=== PATIENT | female | born 1945 | race Caucasian/White ===

== ENCOUNTER 2018-09-01 06:05 | Day surgery (SDC) | payer MEDICARE, OTHER ==
[~2018-09-01 06:05] MED LIST: ACETAMINOPHEN 1,000 MG/100 ML BTL IV ONE; CLINDAMYCIN 600MG/50ML PREMIX 600 MG/50 ML BAG IVPB ONE
[2018-09-01] MEDS ORDERED: ACETAMINOPHEN W/ CODEINE 300MG/30MG TABLET PO ONE (06:06)
[2018-09-01] MEDS ORDERED: EPINEPHRINE 1 MG/ML AMPUL SQ ONE (06:06)
[2018-09-01] MEDS ORDERED: SUCCINYLCHOLINE 20 MG/ML 10ML IVP ONE (06:06)
[2018-09-01] MEDS ORDERED: SEVOFLURANE 250 ML INH ONE (06:06)
[2018-09-01] MEDS ORDERED: DEXAMETHASONE 4 MG/ML 1ML VIAL IVP ONE (06:06)
[2018-09-01] MEDS ORDERED: BUPIVACAINE LIPOSOME 266MG/20ML VIAL IV ONE (06:06)
[2018-09-01] MEDS ORDERED: BUPIVACAINE 0.5% W/EPI MPF 30 ML VIAL IVP ONE (06:06)
[2018-09-01] MEDS ORDERED: ONDANSETRON HCL IV 4 MG/2 ML VIAL IVP ONE (06:06)
[2018-09-01] MEDS ORDERED: FENTANYL PF 100MCG/2ML VIAL IV ONE (06:06)
[2018-09-01] MEDS ORDERED: EPHEDRINE SULFATE 50 MG/ML ML IV ONE (06:06)
[2018-09-01] MEDS ORDERED: KETOROLAC 30 MG/ML VIAL IVP ONE (06:06)
[2018-09-01] MEDS ORDERED: PROPOFOL 10 MG/ML VIAL IV ONE (06:06)
--- NOTE | 2018-09-03 19:12 | Operative Note ---
DATE OF SURGERY: 09/01/17 PREOPERATIVE DIAGNOSES: 1. RIGHT SHOULDER ROTATOR CUFF TEAR. 2. AC JOINT ARTHROSIS. POSTOPERATIVE DIAGNOSES: 1. RIGHT SHOULDER ROTATOR CUFF TEAR. 2. AC JOINT ARTHROSIS. 3. BICEPS TENDON RUPTURE. 4. SUBSCAPULARIS TENDON RUPTURE. PROCEDURE: 1. DIAGNOSTIC ARTHROSCOPY. 2. ARTHROSCOPIC ACROMIOPLASTY WITH SUBACROMIAL DECOMPRESSION. 3. ARTHROSCOPIC EXTENSIVE DEBRIDEMENT OF A TORN BICEPS TENDON STUMP FLOATING IN THE JOINT CARTILAGE ROTATOR CUFF LABRUM. 4. ARTHROSCOPIC SUBSCAPULARIS TENDON REPAIR. SURGEON: MIGUELITO KERNS M.D. ANESTHESIA: GENERAL. COMPLICATIONS: NONE. ESTIMATED BLOOD LOSS: MINIMAL. OPERATIVE FINDINGS: A complex tear, medium size tear, in the supraspinatus tendon. High-grade partial full-thickness tear subscapularis tendon. Complete rupture of the biceps tendon with the stump floating within the joint line. AC joint, [id number] arthrosis. COMPONENTS PLACED: Three Whipple [employer]hew 5.5 mm Regenesorb anchors with two #2 Ultrabraid sutures and one Whipple [employer] Nephew MULTIFIX anchor loaded with four suture limbs from the medial anchor. INDICATION FOR OPERATIONS: This 73-year-old female who is well known to myself. She has had persistent pain and dysfunction in her shoulder. MRI showed a rotator tear and she is scheduled for the procedure above. I explained the risks and benefits of surgery in detail for the diagnoses and procedures including but not limited to infection, nerve injury, vessel injury, persistent pain, stiffness, numbness and tingling in her shoulder, retear of the rotator cuff, and need for further procedures. All of her questions were answered. Rehab and course were outlined and she agreed to proceed. PROCEDURE: The patient was brought to the O.R. and placed in the beach chair position for the proper surgery. General endotracheal anesthesia was induced and the right upper extremity and shoulder were prepped and draped in sterile fashion. The right shoulder was prepped again with ChloraPrep after draped. Intraoperative time-out was performed. Preoperative exam revealed full range of motion. No shoulder instability. Next, the glenohumeral joint, subacromial space, and AC joint were injected with 0.5% Marcaine with Epinephrine. A standard posterior arthroscopic portal was established 2.0 cm inferior and 1.0 cm medial to the posterolateral corner of the acromion. An anterior portal was established with the rotator interval under direct visualization and diagnostic arthroscopy was performed. The biceps tendon was ruptured. The stump several centimeter long stump was floating within the joint, shredded, and we immediately debrided that with a shaver back to smooth stable surface to the labrum. The superior labrum otherwise debrided was normal. The posterior superior labrum partially torn, debrided. The posterior inferior labrum was normal. Axillary recess normal. The glenoid and humeral head and articular cartilage had some mild grade 1 chondromalacia in the humeral head. The glenoid was normal. The undersurface of the rotator cuff was thoroughly inspected. There was a complex large shredded tear in the supraspinatus and infraspinatus tendons approximately medium in size with some minimal retraction. The superior and middle glenohumeral ligaments were intact. The subscap tendon was torn with significant tear here, almost full-thickness tear of the subscap and we plan repairing that as well. Shaver inserted again. Bone cutting blade in the anterior portal and debrided back the greater tuberosity and lesser tuberosity at the subscap tendon tear site and labrum as necessary. Next, the anterior and posterior subacromial portals were established. The tissue ablator was inserted in the anterior subacromial portal and a subacromial bursectomy was performed outlining the anterolateral acromion, releasing the coracoclavicular ligament completely and opening up the AC joint capsule. Next, the lateral portal was established off the posterior margin of the AC joint. A 5.5 mm bur was inserted and took off strips of bone working from lateral to medial, anterior to posterior, converting a type II acromion to a planar surface. We used a rasp to smooth the subacromial surface and verify it was flat with a probe from the posterior portal. Next, we inserted the bur in the anterior portal, burred down to the medial acromial facet, resected the distal clavicle 1 cm. We made small stab incision superior to the AC joint. and inserted a shaver there and smoothed both bony surfaces to verify the AC joint was completely free of any bony impingement or bony fragments. Next, we thoroughly inspected the bursal surface and rotator cuff again. We found a medium size tear. There was some lateral tissue bridge with the cuff and then another smaller tear across that laterally on the edge. We planned on using a double-row anchor fixation technique. We used a spinal needle entry point and placed a small stab incision in the acromial edge and inserted the punch tap there and inserted the anchor at the articular margin and we passed one limb of each set of suture through the rotator cuff about 2 cm medial to the cuff tear edge creating two mattress stitches working from the midportion of the cuff to the posterior portion covering the entire site. We then placed a lateral row anchor off more of the greater tuberosity edge laterally. We used a spinal needle entry point again, inserted the punch tap and inserted that anchor. At this time, we only passed one limb of each set of suture slightly posterior to the previously placed medial row mattress suture to create a Heber-Jeff type construct. We then tied down to each corresponding mattress stitch with each corresponding simple stitch creating a Heber-Jeff. We saved the two medial row sutures. We then loaded those on a MULTIFIX anchor and inserted that over the edge of the greater tuberosity further tucking down the bursal surface of the cuff tear edge nicely. Reproduce footprint. The knots were probed stable and secure. Cut those sutures flush. Direct visualization intra-articularly again with footprints re-established. This completed our procedures. Scope and equipment were removed. The scope incisions were covered with Steri-Strips and the shoulder was injected a bolus of 0.5% Marcaine with Epinephrine and Exparel. Sterile dressing was applied and UltraSling. The patient tolerated the procedures well. No intraoperative complications. All sponge, needle, and blade counts correct. Recovery room stable, neurovascularly intact. She will be discharged as an outpatient with [facility] Nurse and follow-up in two weeks. cc: Dr. Zen Leal JOB NUMBER: [id number] [facility]
== END 2018-09-01 11:10 | disposition home or self-care (01) ==
LOC: SUR 06:05
PROVIDERS: ATTEND Orthopaedic Surgery
DX: S46.011A Strain of muscle(s) and tendon(s) of the rotator cuff of right shoulder, initial encounter (principal); M19.011 Primary osteoarthritis, right shoulder; M66.829 Spontaneous rupture of other tendons, unspecified upper arm; I10 Essential (primary) hypertension; M81.0 Age-related osteoporosis without current pathological fracture
CPT/HCPCS: 29823; 29826; 29827; 01630; 36416; 82948; J1885; J2405; J3010; C9290; C1713; J0171; J0330

== ENCOUNTER 2018-09-03 16:57 | Observation (INO) | payer MEDICARE, OTHER ==
[2018-09-03] MEDS ORDERED: 0.9 % SODIUM CHLORIDE 1000ML 500 ML IV SCH (17:45)
--- NOTE | 2018-09-03 17:46 | Emergency Department Record ---
History of Present Illness - General Chief Complaint: Difficulty Breathing Stated Complaint: ANIKA Time Seen by Provider: 09/03/18 17:30 Source: Patient Mode of Arrival: Ambulatory Limitations: No limitations - History of Present Illness Initial Comments: 73 yo female presents to ED for evaluation of difficulty in breathing symptoms with any type of exertion. Patient reports that her symptoms began yesterday, reports shoulder reconstruction surgery with Dr. Patel 2 days ago. Patient does report nonproductive cough symptoms, denies fevers, chills. Patient denies lower extremity edema, but does report history of DVT x 2. Patient does not take anticoagulation medications at her baseline. MD Complaint: Shortness of breath Onset/Timin -: Days(s) Consistency: Intermittent Improves With: Nothing Worsens With: Exertion Known History Of: DVT, Other Context: Other Associated Symptoms: Denies other symptoms Treatments Prior to Arrival: None - Related Data Home Oxygen Therapy: No Home Medications Medication Instructions Recorded Confirmed Last Taken Acetaminophen with Codeine 1 tab PO Q6H 09/03/18 09/03/18 09/03/18 [Tylenol with Codeine #3 Tablet] Denosumab [Prolia] 80 mg INJ ASDIR 09/03/18 09/03/18 Unknown Furosemide [Lasix] 40 mg PO DAILY PRN 09/03/18 09/03/18 09/03/18 Lisinopril [Prinivil] 20 mg PO DAILY 09/03/18 09/03/18 09/03/18 Prednisolone Acetate 1 drop OPTH QID 09/03/18 09/03/18 09/03/18 Tramadol HCl [Ultram] 1 tab PO DAILY 09/03/18 09/03/18 09/03/18 Allergies Allergy/AdvReac Type Severity Reaction Status Date / Time hydrocodone Allergy ALTERED Verified 09/01/18 06:54 MENTAL STATUS Penicillins Allergy RASH Verified 09/01/18 06:54 Travel Screening - Travel/Exposure Within Last 30 Days Have you traveled within the last 30 days?: Yes Location Detail:: [place] - Travel/Exposure Within Last Year Have you traveled outside the [place] in the last year?: No - Additonal Travel Details Have you been exposed to anyone with a communicable illness?: No - Travel Symptoms Symptom Screening: None Review of Systems Constitutional: Denies: Chills, Fever, Malaise, Night sweats Eyes: Denies: Eye discharge, Eye pain ENT: Denies: Congestion, Ear pain, Epistaxis Respiratory: Reports: Dyspnea. Denies: Cough Cardiovascular: Denies: Chest pain, Dyspnea on exertion Endocrine: Denies: Fatigue, Heat or cold intolerance Gastrointestinal: Denies: Abdominal pain, Nausea, Vomiting Genitourinary: Denies: Incontinence, Retention Musculoskeletal: Denies: Arthralgia, Back pain Skin: Denies: Bruising, Change in color Neurological: Denies: Abnormal gait, Confusion, Headache Psychiatric: Denies: Anxiety Hematological/Lymphatic: Reports: Blood Clots. Denies: Anemia Past Medical History - SOCIAL HISTORY Smoking Status: Never smoker - RESPIRATORY Hx Respiratory Disorders: Yes Hx Pneumonia: Yes (IN 1981) Hx Tuberculosis: Yes (1997 HAD TREATMENT) - CARDIOVASCULAR Hx Cardio Disorders: Yes Hx Hypertension: Yes (ON MEDS WITH GOOD CONTROL) Comment:: D/T BACK ISSUES USES A CANE AND WALKER AT TIMES - NEURO Hx Neuro Disorders: Yes Hx of Migraines: Yes (SOMETIMES TREATS WITH MAXALT) - GI Hx GI Disorders: No - Hx Genitourinary Disorders: Yes Hx Kidney Stones: Yes (HX OF) - ENDOCRINE Hx Endocrine Disorders: Yes Hx Diabetes: Yes (DIET CONTROLLED ONLY) Comment:: 95-110 BLOOD SUGARS - MUSCULOSKELETAL Hx Musculoskeletal Disorders: Yes Hx Arthritis: Yes (OA) Hx Osteoporosis: Yes Comment:: RTC TEAR RIGHT SHOULDER - PSYCH Hx Psych Problems: No - HEMATOLOGY/ONCOLOGY Hx Hematology/Oncology Disorders: Yes Hx Anemia: Yes (HX OF) 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 ONLY CHILD Hx Heart Disease: Mother Physical Exam - General General Appearance: Alert, Oriented x3, Cooperative, Mild distress Limitations: No limitations - Head Head exam: Atraumatic, Normocephalic, Normal inspection Head exam detail: negative: Abrasion, Contusion, Ovalle's sign, General tenderness, Hematoma, Laceration - Eye Eye exam: Normal appearance. negative: Conjunctival injection, Periorbital swelling, Periorbital tenderness, Scleral icterus - ENT Ear exam: negative: Auricular hematoma, Auricular trauma Nasal Exam: negative: Active bleeding, Discharge, Dried blood, Foreign body Mouth exam: negative: Drooling, Laceration, Muffled voice, Tongue elevation - Neck Neck exam: Normal inspection. negative: Meningismus, Tenderness - Respiratory Respiratory exam: Normal lung sounds bilaterally. negative: Respiratory distress, Rhonchi, Stridor, Wheezes - Cardiovascular Cardiovascular Exam: Regular rate, Normal rhythm, Normal heart sounds - GI/Abdominal GI/Abdominal exam: Soft. negative: Distended, Rebound, Rigid, Tenderness - Rectal Rectal exam: Deferred - exam: Deferred - Extremities Extremities exam: Other (Right shoulder is currently in an a shoulder immobilizer). negative: Pedal edema, Tenderness - Back Back exam: Denies: CVA tenderness (R), CVA tenderness (L) - Neurological Neurological exam: Alert, Oriented X3 - Psychiatric Psychiatric exam: Normal affect, Normal mood - Skin Skin exam: Normal color. negative: Abrasion Type of lesion: negative: abrasion Course Vital Signs 09/03/18 17:01 Temperature 98.1 F Pulse Rate 60 Respiratory 20 Rate Blood Pressure 98/58 Pulse Ox 98 - Reevaluation(s) Reevaluation #1: 09/03/18 17:45 EKG: NSR 59 LAD, RBBB T wave inversion III only, no other acute ST-T wave changes are noted on examination. Laboratory studies were reviewed and are grossly unremarkable for an acute process except for: Hgb 8.4/HCT 28.7. CTA ordered for further evaluation and exclusion of PE. 09/03/18 18:17 Reevaluation #2: 09/03/18 20:07 CTA Chest: No PE No Pneumonia Elevated right jean-claude-diaphragm Performed ambulating biox, patient walked approximately 50 feet, biox 87%, visibly winded. Will admit for further evaluation. Reevaluation #3: 09/03/18 20:49 Case was discussed with Tiffanie Joseph NP, will accept admission at this time. Medical Decision Making - Lab Data Result diagrams: 09/03/18 17:28 09/03/18 17:28 Disposition Disposition: Admit Clinical Impression: Exertional dyspnea Anemia Qualifiers: Anemia type: other cause Other causes of anemia: other cause, not classified Qualified Code(s): D64.89 - Other specified anemias Disposition: Still a Patient at [facility] Decision to Admit: Admit from ER Decision to Admit Date: 09/03/18 Decision to Admit Time: 20:11 Quality - Quality Measures Quality Measures: N/A - Blood Pressure Screening Does Patient Have Any of the Following: No Blood Pressure Classification: Pre-Hypertensive BP Reading Systolic Measurement: 122 Diastolic Measurement: 74 Screening for High Blood Pressure: < Pre-Hypertensive BP, F/U Documented > [ [id number]] Pre-Hypertensive Follow-up Interventions: Referral to alternative/primary care provider.
[2018-09-03 17:54] LABS: BASO % 0.2 % (0-6); EOS % 2.9 % (0-6); GRAN % 62.4 % (47-80); HEMATOCRIT 28.7 % (35.0-47.0); HEMOGLOBIN 8.4 gm/dl (11.6-16.0); LYMPH % 24.9 % (16-45); MEAN CELL VOLUME 81.3 fl (81-97); MEAN CORPUSCULAR HGB CONC 29.3 g/dl (32-36); MEAN PLATELET VOLUME 9.8 fl (7.4-10.4); MONO % 9.6 % (0-9); PLATELET COUNT 326 K/uL (130-400); RED BLOOD COUNT 3.53 M/uL (3.80-5.40); RED CELL DISTRIBUTION WIDTH 18.6 % (11.5-14.5); WHITE BLOOD COUNT W/O DIFF 4.9 K/uL (4.2-12.2)
[2018-09-03 17:56] LABS: MEAN CORPUSCULAR HEMOGLOBIN 23.7 pg (27-33)
[2018-09-03 18:04] LABS: BLOOD UREA NITROGEN 22 mg/dL (8-23); CREATININE 0.6 mg/dL (0.5-0.9); EST GLOMERULAR FILTRATION RATE > 60 mL/min; TOTAL PROTEIN 6.4 g/dL (6.6-8.7)
[2018-09-03 18:06] LABS: GLUCOSE,RANDOM 101 mg/dL (74-109)
[2018-09-03 18:09] LABS: ALB/GLOB RATIO 1.5 (1.1-1.8); ALBUMIN 3.8 g/dL (4.0-5.0); ALKALINE PHOSPHATASE 72 U/L (35-104); ALT/SGPT 14 U/L (<33); AST/SGOT 24 U/L (10.0-35.0)
[2018-09-03] MEDS ORDERED: DENOSUMAB 60 MG/ML SQ SCH (20:55)
[2018-09-03] MEDS ORDERED: ACETAMINOPHEN W/ CODEINE 300MG/30MG TABLET PO SCH (20:55)
[2018-09-03] MEDS ORDERED: FUROSEMIDE 40 MG TABLET PO PRN (20:55)
[2018-09-03] MEDS ORDERED: ALBUTEROL SULFATE (0.083%) 2.5 MG/3 ML NEB INH PRN (20:55)
[2018-09-03] MEDS: IBUPROFEN 400 MG TABLET PO SCH (21:54)
[2018-09-03] MEDS: 0.9 % SODIUM CHLORIDE 1000ML 1,000 ML IV PRN (21:54)
[2018-09-03] MEDS: IPRATROPIUM/ALBUTEROL (0.5MG/3MG) NEB INH SCH (22:02)
[2018-09-04] MEDS: ACETAMINOPHEN W/ CODEINE 300MG/30MG TABLET PO PRN ×3 (01:52→15:02)
[2018-09-04] MEDS: DOCUSATE SODIUM 100 MG CAPSULE PO SCH ×2 (01:52→10:07)
[2018-09-04] MEDS: IPRATROPIUM/ALBUTEROL (0.5MG/3MG) NEB INH SCH ×2 (05:53→10:07)
[2018-09-04] MEDS: IBUPROFEN 400 MG TABLET PO SCH ×2 (06:54→14:00)
[2018-09-04] MEDS ORDERED: LISINOPRIL 20 MG TABLET PO SCH (10:00)
[2018-09-04] MEDS ORDERED: TRAMADOL HCL 50 MG TABLET PO SCH (10:00)
[2018-09-04] MEDS: 0.9 % SODIUM CHLORIDE 1000ML 1,000 ML IV PRN (10:09)
--- NOTE | 2018-09-04 10:41 | History & Physical ---
History of Present Illness - Date of Service Date of Service for History & Physical: 09/04/18 - History of Present Illness Admitting Diagnosis: Exertional Dyspnea. Anemia-likely post-operative. Hypoxia History of Present Illness: Mariluz Osuna is a 73 y.o. F who presented to the [facility] ED d/t ANIKA with any type of exertion. Symptoms began on Saturday09/02/18. Had R shoulder surgery with Dr. Patel at [facility] on 09/01/18. Denies fever or chills but does have a nonproductive cough. 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 Does not take anticoagulants. ED Course Vitals: T 98.1, HR 60, RR 20, BP 98/58, SpO2 98% on RA at rest, 87% on RA with ambulation CTA chest: No PE, no PNA, elevated R jean-claude-diaphragm Labs: Hgb 8.4, Hct 28.7 EKG: NSR, LAD, RBBB 09/04/18 Vitals: HR 70, RR 18, BP 119/59, SpO2 96% on RA Sitting up in recliner chair, alert and conversing with ease. Denies SOB when sitting, only with any amount of exertion. Hgb 8.4 and pt unable to take Iron supplementation d/t hx of gastric surgery. Reports that she used to have iron infusions but then with a change in PCP, the infusions stopped. States that right shoulder pain is tolerable. Discussed CTA chest findings and that right jean-claude-diaphragm is likely r/t recent surgery when local anesthestic (Exparel) was injected into the surgical area. Advised that medication should wear off in approximately 5 days since injection and that then she would likely not have as much ANIKA. Pt verbalized understanding. Travel Screening - Travel/Exposure Within Last 30 Days Have you traveled within the last 30 days?: Yes Location Detail:: [place] - Travel/Exposure Within Last Year Have you traveled outside the [place] in the last year?: No - Additonal Travel Details Have you been exposed to anyone with a communicable illness?: No - Travel Symptoms Symptom Screening: None Review of Systems Reviewed: No additional complaints except as noted below Constitutional: Denies: Chills, Fever, Malaise, Night sweats Eyes: Denies: Eye discharge, Eye pain ENT: Denies: Congestion, Ear pain, Epistaxis Respiratory: Reports: Dyspnea. Denies: Cough Cardiovascular: Denies: Chest pain, Dyspnea on exertion Endocrine: Denies: Fatigue, Heat or cold intolerance Gastrointestinal: Denies: Abdominal pain, Nausea, Vomiting Genitourinary: Denies: Incontinence, Retention Musculoskeletal: Denies: Arthralgia, Back pain Skin: Denies: Bruising, Change in color Neurological: Denies: Abnormal gait, Confusion, Headache Psychiatric: Denies: Anxiety Hematological/Lymphatic: Reports: Blood Clots. Denies: Anemia Past Medical History - SOCIAL HISTORY Smoking Status: Never smoker Alcohol Use: None Drug Use: None - RESPIRATORY Hx Respiratory Disorders: Yes Hx Pneumonia: Yes (IN 1981) Hx Tuberculosis: Yes (1997 HAD TREATMENT) - CARDIOVASCULAR Hx Cardio Disorders: Yes Hx Hypertension: Yes (ON MEDS WITH GOOD CONTROL) Comment:: D/T BACK ISSUES USES A CANE AND WALKER AT TIMES - NEURO Hx Neuro Disorders: Yes Hx of Migraines: Yes (SOMETIMES TREATS WITH MAXALT) - GI Hx GI Disorders: No - Hx Genitourinary Disorders: Yes Hx Kidney Stones: Yes (HX OF) Hx UTI: Yes - ENDOCRINE Hx Endocrine Disorders: Yes Hx Diabetes: Yes (DIET CONTROLLED ONLY) Comment:: 95-110 BLOOD SUGARS - MUSCULOSKELETAL Hx Musculoskeletal Disorders: Yes Hx Arthritis: Yes (OA) Hx Back Injury: Yes Hx Osteoporosis: Yes Comment:: RTC TEAR RIGHT SHOULDER - PSYCH Hx Psych Problems: No - HEMATOLOGY/ONCOLOGY Hx Hematology/Oncology Disorders: Yes Hx Anemia: Yes (HX OF) 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 ONLY CHILD Hx Heart Disease: Mother H&P Meds/Allergies - Allergies Allergies: Allergies Allergy/AdvReac Type Severity Reaction Status Date / Time hydrocodone Allergy ALTERED Verified 09/01/18 06:54 MENTAL STATUS Penicillins Allergy RASH Verified 09/01/18 06:54 - Home Medications Home Medications Medication Instructions Recorded Confirmed Last Taken Acetaminophen with Codeine 1 tab PO Q6H 09/03/18 09/03/18 09/03/18 [Tylenol with Codeine #3 Tablet] Denosumab [Prolia] 80 mg INJ ASDIR 09/03/18 09/03/18 Unknown Furosemide [Lasix] 40 mg PO DAILY PRN 09/03/18 09/03/18 09/03/18 Lisinopril [Prinivil] 20 mg PO DAILY 09/03/18 09/03/18 09/03/18 Prednisolone Acetate 1 drop OPTH QID 09/03/18 09/03/18 09/03/18 Tramadol HCl [Ultram] 1 tab PO DAILY 09/03/18 09/03/18 09/03/18 Previous Rx's Medication Instructions Recorded Acetaminop W/ Codeine 300/30Mg 1 udtab PO Q4H PRN tablet 09/04/18 [Tylenol with Codeine #3] Docusate Sodium [Colace] 100 mg PO BID cap 09/04/18 - Active Medications Active Medications: Current Medications Acetaminophen/Codeine Phosphate (Tylenol #3) 1 udtab PO Q4H PRN PRN Reason: PAIN - MOD TO SEVERE (5-10) Last Admin: 09/04/18 10:08 Dose: 1 udtab Albuterol Sulfate (Albuterol Sulfate) 2.5 mg INH RESP.Q2H PRN PRN Reason: DIFFICULTY IN BREATHING Albuterol/Ipratropium (Duoneb) 3 ml INH RESP.Q4H.[facility] Last Admin: 09/04/18 10:07 Dose: Not Given Docusate Sodium (Colace) 100 mg PO BID [facility] Last Admin: 09/04/18 10:07 Dose: 100 mg Furosemide (Lasix) 40 mg PO DAILY PRN PRN Reason: SWELLING Sodium Chloride () 1,000 mls @ 100 mls/hr IV .Q10H PRN PRN Reason: LARGE VOLUME IV Last Admin: 09/04/18 10:09 Dose: 100 mls/hr Ibuprofen (Motrin 400mg) 800 mg PO Q8H [facility] Last Admin: 09/04/18 06:54 Dose: 800 mg Lisinopril (Zestril) 20 mg PO DAILY [facility] Last Admin: 09/04/18 10:08 Dose: 20 mg Patient Own Med: Prednisolone 1% Opth Drops 1 each OPTH QID [facility] Physical Exam - Vital Signs Vital Signs: Vital Signs - Last 24 Hrs Temp Pulse Pulse Resp BP BP Pulse Ox 09/04/18 04:00 70 18 119/59 96 09/04/18 00:00 82 20 128/64 97 09/03/18 21:00 96.8 F L 67 18 142/65 98 09/03/18 20:33 66 18 122/74 91 L 09/03/18 19:29 97.7 F 66 18 113/69 97 09/03/18 17:01 98.1 F 60 20 98/58 98 - General General Appearance: Alert, Oriented x3, Cooperative, No acute distress, Mild distress Limitations: No limitations - Head Head exam: Atraumatic, Normocephalic, Normal inspection Head exam detail: negative: Abrasion, Contusion, Ovalle's sign, General tenderness, Hematoma, Laceration - Eye Eye exam: Normal appearance. negative: Conjunctival injection, Periorbital swelling, Periorbital tenderness, Scleral icterus - ENT Ear exam: negative: Auricular hematoma, Auricular trauma Nasal Exam: negative: Active bleeding, Discharge, Dried blood, Foreign body Mouth exam: negative: Drooling, Laceration, Muffled voice, Tongue elevation - Neck Neck exam: Normal inspection. negative: Meningismus, Tenderness - Respiratory Respiratory exam: Normal lung sounds bilaterally. negative: Respiratory distress, Rhonchi, Stridor, Wheezes - Cardiovascular Cardiovascular Exam: Regular rate, Normal rhythm, Normal heart sounds - GI/Abdominal GI/Abdominal exam: Soft. negative: Distended, Rebound, Rigid, Tenderness - Rectal Rectal exam: Deferred - exam: Deferred - Extremities Extremities exam: Other (Right shoulder is currently in an a shoulder immobilizer). negative: Pedal edema, Tenderness - Back Back exam: Denies: CVA tenderness (R), CVA tenderness (L) - Neurological Neurological exam: Alert, Oriented X3 - Psychiatric Psychiatric exam: Normal affect, Normal mood - Skin Skin exam: Normal color, Other (quarter sized serosangueinous drainage to shoulder dressing). negative: Abrasion Type of lesion: negative: abrasion Results - Labs Result Diagrams: 09/03/18 17:28 09/03/18 17:28 Labs Last 24 Hours: Laboratory Results - last 24 hr 09/03/18 09/03/18 17:28 17:28 WBC 4.9 RBC 3.53 L Hgb 8.4 L Hct 28.7 L MCV 81.3 MCH 23.7 L MCHC 29.3 L RDW 18.6 H Plt Count 326 MPV 9.8 Gran % 62.4 Lymphocytes % 24.9 Monocytes % 9.6 H Eosinophils % 2.9 Basophils % 0.2 Sodium 141 Potassium 4.7 H Chloride 102 Carbon Dioxide 28.0 Anion Gap 11.0 BUN 22 Creatinine 0.6 Estimated GFR > 60 Random Glucose 101 Calcium 8.4 L Total Bilirubin 0.20 AST 24 ALT 14 Alkaline Phosphatase 72 Troponin T < 0.010 Total Protein 6.4 L Albumin 3.8 L Globulin 2.6 Albumin/Globulin Ratio 1.5 VTE H&P Assessment - Risk for VTE Risk for VTE: Yes Risk Level: Moderate Risk Assessment Date: 09/04/18 Risk Assessment Time: 10:00 VTE Orders Placed or Will Be Placed: Yes Plan - Detailed Diagnosis and Plan (1) Exertional dyspnea Status: Acute Base Code: R06.09 - OTHER FORMS OF DYSPNEA Comment: 09/04/18 -ANIKA r/t anemia vs. right jean-claude-diaphragm ? -Hgb 8.4 -Recent Right shoulder surgery with local anesthetic, possibly affecting the phrenic nerve causing right jean-claude-diaphragm (2) Anemia Status: Acute Qualifiers: Anemia type: other cause Other causes of anemia: other cause, not classified Qualified Code(s): D64.89 - Other specified anemias Base Code: D64.9 - ANEMIA, UNSPECIFIED Comment: 09/04/18 -Hgb 8.4 -Hx of needing iron infusions, cannot take oral Fe -Venofer 500mg IV x 1, repeat in 2 weeks (3) Full code status Status: Acute Base Code: Z78.9 - OTHER SPECIFIED HEALTH STATUS Comment: 09/04 -Full code this admission (4) DVT prophylaxis Status: Acute Base Code: [id number] - Comment: 09/04/18 -High Risk -Nursing to encourage ambulation -D/C today
[2018-09-04] MEDS ORDERED: IPRATROPIUM/ALBUTEROL (0.5MG/3MG) NEB INH PRN (11:05)
--- NOTE | 2018-09-04 11:19 | CT ANGIOGRAM REPORT ---
EXAM: CTA OF THE CHEST HISTORY: DIFFICULTY BREATHING, HISTORY OF RECENT RIGHT SHOULDER ROTATOR CUFF REPAIR. TECHNIQUE: CT angiogram of the chest was performed with 100 ml Omnipaque 350 intravenous contrast. Additional maximum intensity projection images created on an independent workstation. Comparison: None. FINDINGS: No pulmonary artery filling defects to suggest embolism. No thoracic aortic aneurysm or dissection. No significant pericardial fluid collection. No mediastinal, hilar, or axillary lymphadenopathy. No focal pulmonary consolidation. Asymmetric elevation of the right hemidiaphragm with adjacent right lower lobe compressive atelectasis. No pleural effusion or pneumothorax. Small hiatal hernia. Gallbladder fossa surgical clips. Bilateral intrarenal calculi measuring up to 7 mm on the right and 6 mm on the left. Round low attenuation lesions within the renal cortices bilaterally, indeterminate density characteristics. Midline upper abdominal wall surgical closure device. Soft tissue thickening with foci of gas surrounding the right shoulder joint. Scattered degenerative changes of the thoracic spine. No definite acute osseous findings. IMPRESSION: 1. NO EVIDENCE OF PULMONARY EMBOLISM OR OTHER ACUTE INTRATHORACIC PROCESS. 2. MILD COMPRESSIVE ATELECTASIS SECONDARY TO ASYMMETRICALLY ELEVATED RIGHT HEMIDIAPHRAGM. 3. SMALL HIATAL HERNIA. 4. BILATERAL NONOBSTRUCTING INTRARENAL CALCULI. 5. BILATERAL LOW ATTENUATION RENAL CORTICAL LESIONS FAVOR CYSTS, ALTHOUGH DENSITY IS INDETERMINATE. RECOMMEND FOLLOW-UP ULTRASOUND TO FURTHER ASSESS. 6. SOFT TISSUE THICKENING AND GAS INVOLVING THE RIGHT SHOULDER JOINT LIKELY RELATED TO RECENT SURGERY. JOB NUMBER: [id number] [facility]
[2018-09-04] MEDS: OPTH OPTH SCH ×2 (13:00→14:07)
[2018-09-04] MEDS: PREDNISOLONE 1% OPTH SCH ×2 (13:00→14:07)
[2018-09-04] MEDS ORDERED: IRON SUCROSE COMPLEX 500 MG in 0.9 % SODIUM CHLORIDE 250ML 250 ML IVPB ONE (14:00)
--- NOTE | 2018-09-04 16:58 | Discharge Summary ---
Providers Discharge Summary Date: 09/04/18 Date of admission: 09/03/18 20:42 Attending physician: MANNY MENESES Primary care physician: SCOOTER LISA M.D. Physical Exam - Vital Signs Vital Signs: Vital Signs - Last 24 Hrs Temp Pulse Pulse Resp BP BP Pulse Ox 09/04/18 12:00 98.9 F 78 16 104/51 95 09/04/18 11:15 97.7 F 73 18 146/65 94 L 09/04/18 09:00 18 09/04/18 04:00 70 18 119/59 96 09/04/18 00:00 82 20 128/64 97 09/03/18 21:00 96.8 F L 67 18 142/65 98 09/03/18 20:33 66 18 122/74 91 L 09/03/18 19:29 97.7 F 66 18 113/69 97 09/03/18 17:01 98.1 F 60 20 98/58 98 - General General Appearance: Alert, Oriented x3, Cooperative, Mild distress Limitations: No limitations - Head Head exam: Atraumatic, Normocephalic, Normal inspection Head exam detail: negative: Abrasion, Contusion, Ovalle's sign, General tenderness, Hematoma, Laceration - Eye Eye exam: Normal appearance. negative: Conjunctival injection, Periorbital swelling, Periorbital tenderness, Scleral icterus - ENT Ear exam: negative: Auricular hematoma, Auricular trauma Nasal Exam: negative: Active bleeding, Discharge, Dried blood, Foreign body Mouth exam: negative: Drooling, Laceration, Muffled voice, Tongue elevation - Neck Neck exam: Normal inspection. negative: Meningismus, Tenderness - Respiratory Respiratory exam: Normal lung sounds bilaterally. negative: Respiratory distress, Rhonchi, Stridor, Wheezes - Cardiovascular Cardiovascular Exam: Regular rate, Normal rhythm, Normal heart sounds - GI/Abdominal GI/Abdominal exam: Soft. negative: Distended, Rebound, Rigid, Tenderness - Rectal Rectal exam: Deferred - exam: Deferred - Extremities Extremities exam: Other (Right shoulder is currently in an a shoulder immobilizer). negative: Pedal edema, Tenderness - Back Back exam: Denies: CVA tenderness (R), CVA tenderness (L) - Neurological Neurological exam: Alert, Oriented X3 - Psychiatric Psychiatric exam: Normal affect, Normal mood - Skin Skin exam: Normal color. negative: Abrasion Type of lesion: negative: abrasion Hospitalization - Hospitalization Admission Diagnosis: Exertional Dyspnea. Anemia-likely post-operative. Hypoxia - Problem List/Discharge Diagnosis (1) Anemia Status: Acute Discharge Diagnosis: Anemia type: other cause Other causes of anemia: other cause, not classified Qualified Code(s): D64.89 - Other specified anemias Base Code: D64.9 - ANEMIA, UNSPECIFIED Comment: 09/04/18 -Hgb 8.4 -Hx of needing iron infusions, cannot take oral Fe -Venofer 500mg IV x 1, repeat in 2 weeks (2) DVT prophylaxis Status: Acute Base Code: QTN0266 - Comment: 09/04/18 -High Risk -Nursing to encourage ambulation -D/C today (3) Exertional dyspnea Status: Acute Base Code: R06.09 - OTHER FORMS OF DYSPNEA Comment: 09/04/18 -ANIKA r/t anemia vs. right jean-claude-diaphragm ? -Hgb 8.4 -Recent Right shoulder surgery with local anesthetic, possibly affecting the phrenic nerve causing right jean-claude-diaphragm -Has Home Care d/t right shoulder surgery. Will monitor O2 levels. Offered home O2 qualifer to get short-term home oxygen, pt declined. (4) Full code status Status: Acute Base Code: Z78.9 - OTHER SPECIFIED HEALTH STATUS Comment: 09/04 -Full code this admission - Hospitalization Course Disposition: Home Health Service Hospital Course: Mariluz Gibbs is a 73 y.o. F who presented to the [facility] ED d/t ANIKA with any type of exertion. Symptoms began on Saturday09/02/18. Had R shoulder surgery with Dr. Patel at [facility] on 09/01/18. Denies fever or chills but does have a nonproductive cough. 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 Does not take anticoagulants. ED Course Vitals: T 98.1, HR 60, RR 20, BP 98/58, SpO2 98% on RA at rest, 87% on RA with ambulation CTA chest: No PE, no PNA, elevated R jean-claude-diaphragm Labs: Hgb 8.4, Hct 28.7 EKG: NSR, LAD, RBBB 09/04/18 Vitals: HR 70, RR 18, BP 119/59, SpO2 96% on RA Sitting up in recliner chair, alert and conversing with ease. Denies SOB when sitting, only with any amount of exertion. Hgb 8.4 and pt unable to take Iron supplementation d/t hx of gastric surgery. Reports that she used to have iron infusions but then with a change in PCP, the infusions stopped. States that right shoulder pain is tolerable. Discussed CTA chest findings and that right jean-claude-diaphragm is likely r/t recent surgery when local anesthestic (Exparel) was injected into the surgical area. Advised that medication should wear off in approximately 5 days since injection and that then she would likely not have as much ANIKA. Pt verbalized understanding. Has home care nurse d/t recent surgery and will have her monitor O2 levels. Denied need for supplemental O2 at home. Procedures: Imaging and X-Rays 09/03/18 18:13 CHEST CTA w contrast [CTA] Stat Cardiology Procedures 09/03/18 17:40 EKG NOW Abnormal Labs: Abnormal Lab Results 09/03/18 09/03/18 Range/Units 17:28 17:28 RBC 3.53 L (3.80-5.40) M/uL Hgb 8.4 L (11.6-16.0) gm/dl Hct 28.7 L (35.0-47.0) % MCH 23.7 L (27-33) pg MCHC 29.3 L (32-36) g/dl RDW 18.6 H (11.5-14.5) % Monocytes % 9.6 H (0-9) % Potassium 4.7 H (3.4-4.5) mmol/L Calcium 8.4 L (8.8-10.2) mg/dL Total Protein 6.4 L (6.6-8.7) g/dL Albumin 3.8 L (4.0-5.0) g/dL Condition at Discharge: (1) Good Discharge Medications - Discharge Medications Home Medications: Ambulatory Orders Acetaminophen with Codeine [Tylenol with Codeine #3 Tablet] 1 tab PO Q6H [Last Taken 09/03/18] Denosumab [Prolia] 80 mg INJ ASDIR 09/03/18 [Last Taken Unknown] Furosemide [Lasix] 40 mg PO DAILY PRN 09/03/18 [Last Taken 09/03/18] Lisinopril [Prinivil] 20 mg PO DAILY 09/03/18 [Last Taken 09/03/18] Prednisolone Acetate 1 drop OPTH QID 09/03/18 [Last Taken 09/03/18] Tramadol HCl [Ultram] 1 tab PO DAILY 09/03/18 [Last Taken 09/03/18] Acetaminop W/ Codeine 300/30Mg [Tylenol with Codeine #3] 1 udtab PO Q4H PRN tablet 09/04/18 [Last Taken Unknown] Docusate Sodium [Colace] 100 mg PO BID cap 09/04/18 [Last Taken Unknown] Discharge Plan - Discharge Instructions Activity at Discharge: Increase Activity as Tolerated Diet at Discharge: Advance to Usual Diet Instructions: Dyspnea (DC), Anemia (DC) Quality Measures - Quality Measures Quality Measures: Advance Directives, Documentation of Current Medications in Medical Record, Elder Maltreatment Screen and Follow-Up Plan, Screening for High Blood Pressure and F/U Documented - Current Medications Quality Measure: Measure #130: Documentation of Current Medications Documentation of Current Medications: <Current Medications Documented/Reviewed> [[id number]] - Blood Pressure Screening Quality Measure: Screening for High Blood Pressure and Follow-Up Documented Does Patient Have Any of the Following: No Blood Pressure Classification: Pre-Hypertensive BP Reading Systolic Measurement: 122 Diastolic Measurement: 74 Screening for High Blood Pressure: < Pre-Hypertensive BP, F/U Documented > [ [id number]] Pre-Hypertensive Follow-up Interventions: Referral to alternative/primary care provider. - Advance Directives Quality Measure: Measure #47: Care Plan Advance Directives Established: No Advance Directives Information Provided To Patient: Declined Advance Directives on File: No Living Will: Yes (PT IS JCUSTODIAN) Power of Valve And Regulator Repairer: Yes Power of Valve And Regulator Repairer Name: AZAM GIBBS Advance Care Planning: <Care Plan/Decision Maker Documented; Discussed & Documented> [[id number]] - Elder Abuse Suspicion Index Screening: Elder Abuse Suspicion Index Screening Rely on people for bathing, dressing, shopping, banking, etc: No Prevented from getting food, clothes, medication, etc: No Made to feel shamed or threatened by someone: No Forced to sign papers or use money against will: No Feel afraid, touched in ways not wanted or hurt physically: No Poor eye contact, withdrawn, malnourished, cuts or bruises: No Screening Result: Negative result EASI Reference Information: Kell DIAZ, Liliam C, Nichole D, Alex Pacheco.Development and validation of a tool to assist physicians identification of elder abuse: The Elder Abuse Suspicion Index (EASI ). Journal of Elder Abuse and Neglect, 2008; 20 (3): 276-300. - Elder Maltreatment Screen Quality Measures: Elder Maltreatment Screen and Follow-Up Plan Elder Maltreatment Screen: <Negative, No Follow-Up Plan Required> [[id number]]
== END 2018-09-04 17:45 | disposition home health service (06) ==
LOC: ER 16:57 → MEDSURG 20:42
PROVIDERS: ADMIT Internal Medicine; ATTEND Internal Medicine
DX: R06.00 Dyspnea, unspecified (principal); D64.89 Other specified anemias; R09.02 Hypoxemia; I10 Essential (primary) hypertension; E11.9 Type 2 diabetes mellitus without complications; M19.90 Unspecified osteoarthritis, unspecified site; M41.9 Scoliosis, unspecified; Z86.11 Personal history of tuberculosis; Z87.442 Personal history of urinary calculi; Z85.3 Personal history of malignant neoplasm of breast; F10.21 Alcohol dependence, in remission; Z86.718 Personal history of other venous thrombosis and embolism
CPT/HCPCS: 85025; 80053; 84484; 71275; 94640 ×2; 94618; 93005; 93010; G0378 ×2; Q9967; J1756; 99220; 99285; 99291; J7050